=== PATIENT | male | born 1975 | race Caucasian/White ===

== ENCOUNTER → 2016-07-06 | Outpatient (CLI) | payer BC ==
--- NOTE | 2016-07-12 13:20 | SLEEP ---
DATE OF STUDY: 07/06/2016 ATTENDING PHYSICIAN: Dr. Rob Peace. The patient is 41 years old, who weighs 308 pounds with a BMI of 43. The patient's [place] score was 7. A split night study was performed at [facility]. During the night study, the patient spent 450 minutes in bed and slept for 395 minutes with a sleep efficiency of 88%. Sleep latency was 13 minutes with a REM latency of 98 minutes. Overall, sleep architecture showed normal stage 1 and stage 2 sleep, normal N3 and normal REM sleep. During the initial diagnostic portion of the study, the patient slept for 139 minutes. During that time, there were 18 obstructive apneas, 195 mixed apneas, and no central apneas. There were 27 hypopneas. The patient's apnea-hypopnea index was 104 per hour, supine index is 101 per hour, and a REM index of 99 per hour. EKG monitoring revealed normal sinus rhythm. Occasional PVCs and PACs were seen. Average heart rate was 76 beats per minute. No sustained arrhythmias were observed. PLMS were not seen. Nocturnal oximetry study revealed a mean oxygen saturation of 96% with the lowest of it 64%. 8.6% of time oxygen saturation remained between 80% and 89% and 26% of the time between 70% and 79%. The patient met the criteria for CPAP initiation. It was started at 5 cm of water and titrated up to 12 cm of water. At the final pressure, the patient had 53 minutes of sleep. Supine as well as REM sleep was observed. AHI was reduced to 1 per hour and oxygen saturation remained above 88%. The patient had supine as well as REM sleep. The patient used medium size nasal pillows. IMPRESSION: 1. Severe sleep apnea-hypopnea syndrome with an apnea-hypopnea index of 104 per hour. 2. Nocturnal hypoxia secondary to obstructive sleep apnea, but resolved with CPAP. 3. No clinically significant periodic limb movements during sleep. RECOMMENDATIONS: 1. CPAP at 12 cm of water completely eliminated. The patient's sleep apnea should be used on a nightly basis. 2. Follow up in 4-6 weeks to assess compliance with CPAP and to document clinical improvement. 3. Weight loss is strongly advised. 4. Avoid [employer] depressants. 5. Caution regarding driving until symptoms of sleep apnea resolve with the use of CPAP. GARTH LONDONO MD DR: AUBREY/[email or web address] JOB#: [id number] / [id number] ROB Hwang MD
== END | disposition home or self-care (01) ==
LOC: SLPLAB 18:38
PROVIDERS: ATTEND Family Medicine
DX: G47.33 Obstructive sleep apnea (adult) (pediatric) (principal); R06.83 Snoring; R53.83 Other fatigue
CPT/HCPCS: 95810